=== PATIENT | female | born 1960 | race Two or more races ===

== ENCOUNTER 2022-03-23 22:52 | Emergency (ER) | payer OTHER ==
[~2022-03-23] VITALS: Ht 175.3 cm; Wt 81.6 kg
[~2022-03-23 22:52] MED LIST: PERCOCET 5/3251 TAB PO
== END 2022-03-24 01:07 | disposition home or self-care (01) ==
LOC: ER 22:52
DX: S00.93XA Contusion of unspecified part of head, initial encounter (principal); W05.1XXA Fall from non-moving nonmotorized scooter, initial encounter; Y92.89 Other specified places as the place of occurrence of the external cause; Y93.89 Activity, other specified; Y99.9 Unspecified external cause status; Z88.0 Allergy status to penicillin

== ENCOUNTER → 2024-06-19 | Emergency (ER) | payer OTHER ==
[~2024-06-19] VITALS: Ht 175.3 cm; Wt 83.9 kg
[~2024-06-19] MED LIST changes: +DIPHENHYDRAMINE HCL 50 MG/ML VIAL 1ML IV ONE; +DIPHENHYDRAMINE HCL 50 MG/ML VIAL 1ML ONE; +METHYLPREDNISOLONE SOD SUCC 125 MG VIAL IV STA; +METHYLPREDNISOLONE SOD SUCC 125 MG VIAL ONE; +TENORMIN25 MG; +VASOTEC20 M1 PO; +ZESTRIL20 MG
[2024-06-19 09:25] LABS: HEMATOCRIT 37.2 % (36.0-45.00); HEMOGLOBIN 12.3 g/dL (12.0-15.00); MEAN CORPUSCULAR HEMOGLOBIN 31.4 pg (27.00-32.0); PLATELET COUNT 308 K/uL (150-450); RED BLOOD COUNT 3.92 M/uL (4.00-6.00); RED CELL DISTRIBUTION WIDTH 13.2 % (11.5-14.5)
== END | disposition home or self-care (01) ==
LOC: ER 06:32
PROVIDERS: General Practice
DX: R22.0 Localized swelling, mass and lump, head (principal); T78.1XXA Other adverse food reactions, not elsewhere classified, initial encounter; R21 Rash and other nonspecific skin eruption; I10 Essential (primary) hypertension; Z88.0 Allergy status to penicillin

== ENCOUNTER 2024-10-31 08:07 | Emergency (ER) | payer OTHER ==
[~2024-10-31] VITALS: Ht 175.3 cm; Wt 82.1 kg
[~2024-10-31 08:07] MED LIST changes: -DIPHENHYDRAMINE HCL 50 MG/ML VIAL 1ML IV ONE; -DIPHENHYDRAMINE HCL 50 MG/ML VIAL 1ML ONE; -METHYLPREDNISOLONE SOD SUCC 125 MG VIAL IV STA; -METHYLPREDNISOLONE SOD SUCC 125 MG VIAL ONE
[2024-10-31] MEDS ORDERED: METHYLPREDNISOLONE SOD SUCC 125 MG VIAL IV ONE (08:45)
[2024-10-31] MEDS ORDERED: DIPHENHYDRAMINE HCL 50 MG/ML VIAL 1ML IM ONE (08:45)
[2024-10-31] MEDS ORDERED: DIPHENHYDRAMINE HCL 50 MG/ML VIAL 1ML ONE (08:46)
[2024-10-31] MEDS ORDERED: METHYLPREDNISOLONE SOD SUCC 125 MG VIAL ONE (08:47)
== END 2024-10-31 11:34 | disposition home or self-care (01) ==
LOC: ER 08:07
DX: T78.40XA Allergy, unspecified, initial encounter (principal); X58.XXXA Exposure to other specified factors, initial encounter